=== PATIENT | female | born 1960 | race Two or more races ===

== ENCOUNTER 2021-03-14 23:41 | Emergency (ER) | payer OTHER ==
[~2021-03-14] VITALS: Ht 149.9 cm; Wt 74.8 kg
[2021-03-15 03:30] VITALS: BP 151/83
[2021-03-15] MEDS ORDERED: ONDANSETRON ODT 4 MG TAB PO ONE ×2 (04:00→05:30)
[2021-03-15] MEDS ORDERED: HYDROcodone-ACET 10/325MG TAB PO ONE (04:00)
== END 2021-03-15 06:47 | disposition home or self-care (01) ==
LOC: EDBD 23:41 → ER 23:41
DX: S32.000A Wedge compression fracture of unspecified lumbar vertebra, initial encounter for closed fracture (principal); S83.91XA Sprain of unspecified site of right knee, initial encounter; R68.84 Jaw pain; V43.62XA Car passenger injured in collision with other type car in traffic accident, initial encounter; Y93.89 Activity, other specified; Y92.410 Unspecified street and highway as the place of occurrence of the external cause; Y99.8 Other external cause status
CPT/HCPCS: 70486; 72070; 72100; 73562; 93005; 99284; Q0162